=== PATIENT | male | born 1950 | race Caucasian/White ===

== ENCOUNTER 2020-07-25 07:52 | Outpatient (CLI) | payer MEDICARE, SELFPAY ==
[2020-07-25 08:06] LABS: Basophils Absolute Auto 0.05 K/mm3 (0.00-0.10); Basophils Percent Auto 0.8 % (0.0-1.0); Eosinophils Absolute Auto 0.43 K/mm3 (0.02-0.50); Eosinophils Percent Auto 7.3 % (1.0-6.0); Hematocrit 43.5 % (37.0-46.0); Hemoglobin 14.7 g/dL (12.4-15.3); Immature Granulocyte Absolute 0.02 K/mm3 (0.00-0.00); Immature Granulocyte Percent A 0.3 % (0.0-0.0); Lymphocytes Absolute Auto 0.85 K/mm3 (1.10-4.50); Lymphocytes Percent Auto 14.4 % (18.0-42.0); Mean Corpuscular HGB Conc 33.8 g/dL (32.0-36.0); Mean Corpuscular Hemoglobin 29.1 pg (27.0-31.0); Mean Platelet Volume 11.2 fl (8.7-11.0); Monocytes Absolute Auto 0.53 K/mm3 (0.10-0.90); Neutrophils Percent Auto 68.2 % (50.0-70.0); Platelet Count Result 240 K/mm3 (150-420); Red Blood Count 5.06 M/mm3 (4.70-6.10); Red Cell Distribution Width 12.9 % (11.6-14.4); White Blood Count 5.9 K/mm3 (4.8-10.8)
[2020-07-25 08:58] LABS: Alanine Aminotransferase 31 U/L (16-63); Alkaline Phosphatase 66 U/L (46-116); Anion Gap 10 mmol/L (8-16); Aspartate Amino Transferase 22 U/L (15-37); Bilirubin,Total 0.9 mg/dL (0.00-1.00); Blood Urea Nitrogen 16 mg/dL (7-18); Calcium 8.7 mg/dL (8.5-10.1); Carbon Dioxide 26 mmol/L (21-32); Chloride 105 mmol/L (98-108); Cholesterol 207 mg/dL (0-200); Estimated Glomerular Filt Rate > 60; Glucose 117 mg/dL (70-99); HDL Direct 34 mg/dL (40-60); LDL Cholesterol Calculated 152 mg/dL (<130); Osmolality Calculated 294 mOsm/kg (285-295); Potassium 3.6 mmol/L (3.5-5.1); Sodium 141 mmol/L (136-145); Total Protein 6.8 g/dL (6.4-8.2); Triglycerides 103 mg/dL (0-150)
== END 2020-07-25 07:53 | disposition home or self-care (01) ==
LOC: CHSLAB 07:56
PROVIDERS: PCP Nurse Practitioner Family; Visit Provider Nurse Practitioner Family
DX: E78.5 Hyperlipidemia, unspecified (principal); I10 Essential (primary) hypertension
CPT/HCPCS: 36415; 80053; 80061; 85025

== ENCOUNTER 2021-03-27 10:26 | Emergency (ER) | payer MEDICARE, OTHER, SELFPAY ==
[2021-03-27 11:19] VITALS: BP 168/92; PULSE 92; RESP 20; TEMP 36.7; O2SAT 97
--- NOTE | 2021-03-27 11:35 | ED.ANIMALBIT ---
HPI - Animal Bite General Chief Complaint: Animal Bite Stated Complaint: Dog bite Source: patient Mode of arrival: ambulatory History of Present Illness HPI narrative: this is a 70-year-old gentleman that presents with some lacerations on the left index finger on the and on the webbing and on the anterior finger after his dog bit him causing laceration and puncture wounds with avulsion injuries. Currently there is a good strong brisk radial pulse bilaterally with no numbness or tingling, patient not up-to-date with his tetanus. Currently has full range of motion of his hand and fingers. complaint: animal bite Onset (ago): hour(s) Animal: dog Description of animal: household pet Mechanism: bite Location: other ( Bilateral upper extremities hands) Location - Extremities: Right: hand ( lacerations to bilateral hand with some avulsion injuries) Pain description: dull Severity scale (1-10): 2 Context: unprovoked Associated symptoms: none Related Data Home Medications Medication Instructions Recorded Confirmed finasteride 5 mg PO DAILY 03/27/21 03/27/21 valsartan-hydrochlorothiazide 1 tablet PO DAILY 03/27/21 03/27/21 Allergies Allergy/AdvReac Type Severity Reaction Status Date / Time tamsulosin Allergy Intermediate dizziness Verified 03/27/21 11:27 Yrgsffy-Nwi-Meo Reductase AdvReac Intermediate muscle Verified 03/27/21 11:27 Inhibitor stiffness Review of Systems Review of Systems: All systems reviewed & are unremarkable except as noted in HPI and below PMFSH Past Medical History Medical History Enlarged prostate HTN (hypertension) Hyperlipidemia Overweight Family History Family History Other Family history of malignant neoplasm Hypertension Social History Social History Smoking status: Former smoker Tobacco type: cigarettes Alcohol intake: never Substance use: never Substance use type: does not use Gender identity (if verbalized by the patient): Male Exam Const: General: no acute distress HENMT: Head: normal to inspection Eyes: Conjunctivae: conjunctivae normal Pupils: Equal, round and reactive pupils present Neck: Neck: normal visual inspection, no lymphadenopathy and no meningeal signs Chest: Chest palpation & inspection: normal inspection of the chest Resp: Effort & Inspection: normal respiratory effort Auscultation: clear to auscultation bilaterally Cardio: Rate: regular rate Rhythm: regular rhythm GI: GI Palp: Yes Soft to palpation Percussion: Yes normal to percussion Urinary Catheter: Urinary Catheter: patent and draining Back/Spine/Pelvis: Back: no CVA tenderness Skin: General skin exam: normal color Other: Lacerations to the left hand and left index finger and, to and on the right in the ulnar side of the right hand. Extrem: General: normal to inspection and no pedal edema Psych: Mental Status: mental status grossly normal Affect: normal affect Course Course Emergency Course: Patient received 1 g ceftriaxone IM, and updated with his tetanus with Adacel, dura waldrop adhesive was placed on laceration areas and patient tolerated procedure well. Vital Signs Vital signs: Vital Signs Temperature 36.7 C 03/27/21 11:19 Pulse Rate 92 03/27/21 11:19 Respiratory Rate 20 03/27/21 11:19 Blood Pressure 168/92 H 03/27/21 11:19 Pulse Oximetry 97 03/27/21 11:19 Temperature 36.7 C 03/27/21 11:19 Pulse Rate 92 03/27/21 11:19 Respiratory Rate 20 03/27/21 11:19 Blood Pressure 168/92 H 03/27/21 11:19 Pulse Oximetry 97 03/27/21 11:19 Procedures Laceration Laceration 1: Date: 03/27/21 Time: 11:39 Site: upper extremity and hand Side (If applicable): left and right Size (cm): 2 Description: linear Pre-repair: wound expl
[2021-03-27] MEDS: cefTRIAXone 1 GM VIAL IM (11:38)
[2021-03-27] MEDS: LIDOCAINE HCL 1% LOCAL INJ 20 ML VIAL (11:38)
[2021-03-27] MEDS: TETANUS,DIPHTHERIA,AC PERTUSSIS ADULT 0.5 ML (ADACEL) IM (11:39)
[2021-03-27] MEDS: NEOMYCIN/POLYMYXIN/BACITRACIN OINTMENT PACKET 1 PACKET TOPICAL (11:45)
[2021-03-27 11:54] VITALS: BP 155/73; PULSE 93; RESP 20; TEMP 36.7; O2SAT 97
== END 2021-03-27 12:00 | disposition home or self-care (01) ==
PROVIDERS: Emergency Provider Emergency Medicine; PCP Nurse Practitioner Family
DX: S61.211A Laceration without foreign body of left index finger without damage to nail, initial encounter (principal); S61.411A Laceration without foreign body of right hand, initial encounter; S61.412A Laceration without foreign body of left hand, initial encounter; N40.0 Benign prostatic hyperplasia without lower urinary tract symptoms; I10 Essential (primary) hypertension; E78.5 Hyperlipidemia, unspecified; E66.3 Overweight; W54.0XXA Bitten by dog, initial encounter; Y93.9 Activity, unspecified; Z80.9 Family history of malignant neoplasm, unspecified; Z87.891 Personal history of nicotine dependence
CPT/HCPCS: 12001; 90471; 90715; 96372; 99283; J0696

== ENCOUNTER 2022-06-11 12:53 | Emergency (ER) | payer MEDICARE, OTHER, SELFPAY ==
--- NOTE | ~2022-06-11 | XR_ITS ---
EXAMINATION: XR chest 1V portable Exam Date/Time: 06/11/2022 14:07 CDT HISTORY: syncopal episode today with LOC and dizziness Comparison: None available. RESULT: Lines, tubes, and devices: None. Lungs and pleura: Clear. Calcified granulomas. Cardiomediastinal silhouette: Stable cardiomediastinal silhouette. Other: No acute osseous or upper abdominal finding. IMPRESSION: No acute cardiopulmonary process. Reviewed, dictated and finalized at location [facility].
--- NOTE | ~2022-06-11 | CT_ITS ---
EXAMINATION: CT brain wo con DATE: 06/11/2022 14:14 INDICATION: Syncopal episode today, possible loss of consciousness TECHNIQUE: Computed tomography (CT) of the head was performed without intravenous contrast. The mA wa s adjusted according to patient size. Iterative reconstruction technique was employed. Exam dose: 60 5.33 mGy-cm total exam DLP. COMPARISON: None FINDINGS: Bilateral vertebral artery and carotid siphon internal carotid artery calcifications. 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 No intracranial mass lesion or hemorrhage, midline shift or mass effect is detected. No recent cerebr ovascular accident is evident. No subdural or epidural hematoma is detected. There is moderate central and cortical cerebral atrophy and mild cerebellar atrophy. Bilateral ocular lens replacements. Mild partial right mastoidectomy. Mild soft tissue thickening in the posterior right sphenoid sinus. Included paranasal sinuses and mas toid air cells are otherwise unremarkable. Right parietal bone flap in place. No skull fracture or bone destruction. 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 Reviewed, dictated and finalized at location A.
[2022-06-11 13:00] VITALS: BP 152/71; PULSE 79; RESP 22; TEMP 36.6; O2SAT 100
--- NOTE | 2022-06-11 13:11 | ED.SYNCOPE ---
HPI - Syncope General Chief Complaint: Syncope Stated Complaint: ambulance Time Seen by Provider: 06/11/22 13:12 Source: patient Mode of arrival: EMS History of Present Illness HPI narrative: 71-year-old male with a history of hypertension, dyslipidemia, BPH presents to the ER via EMS with -- syncopal spell. When he stood up he felt dizzy, diaphoretic and had shortness of Breath. He had to crawl to get to his phone from where he called 911. He has had dizzy spells off and on but none this bad. -- tested positive for COVID -- tearful -- anxious Denied any chest pain. Denied fever or chills. he has a pulse ox machine which stated that he had heart rates of around 150 intermittently. MD complaint: felt faint Onset (ago): hour(s) ( Happened 1 hour ago) Prodromal symptoms: none Witnessed: No Context: standing up Injuries sustained associated with event: none Current symptoms: back to baseline Treatments prior to arrival: none Related Data Home Medications Medication Instructions Recorded Confirmed finasteride 5 mg tablet 5 mg PO DAILY 03/27/21 06/11/22 Allergies Allergy/AdvReac Type Severity Reaction Status Date / Time tamsulosin Allergy Intermediate dizziness Verified 03/27/21 11:27 Luaxsuf-EKQ-PbU Reductase AdvReac Intermediate muscle Verified 03/27/21 11:27 Inhibitor stiffness [Wyqdhyl-Axz-Oee Reductase Inhibitor] Review of Systems Review of Systems: All systems reviewed & are unremarkable except as noted in HPI and below Constitutional: Constitutional: Reports as per HPI and Reports no additional constitutional complaints Eyes: Eyes: Reports as per HPI and Reports no additional eye complaints ENT: Reports system reviewed and no additional complaints, except as documented and Reports as per HPI Cardiovascular: Cardiovascular: Reports as per HPI and Reports no additional cardiovascular complaints Respiratory: Respiratory: Reports as per HPI and Reports no additional respiratory complaints Comments: Shortness of breath during his dizzy spells Gastrointestinal: Gastrointestinal: Reports as per HPI and Reports no additional gastrointestinal complaints Genitourinary: Genitourinary: Reports no additional male genitourinary complaints and Reports as per HPI Musculoskeletal: Musculoskeletal: Reports no additional musculoskeletal complaints and Reports as per HPI Integumentary/Breasts: Skin/Breast: Reports system reviewed and no additional complaints, except as docu and Reports as per HPI Neurologic: Reports system reviewed and no additional complaints, except as documented, Reports as per HPI, Reports dizziness and Reports syncope Psychiatric: Psychiatric: Reports no additional psychiatric complaints and Reports as per HPI Endocrine: Endocrine: Reports no additional endocrine complaints and Reports as per HPI Hematologic/Lymphatic: Hematologic/Lymphatic: Reports no additional hematologic/lymphatic complaints and Reports as per HPI Allergic/Immunologic: Allergic/Immunologic: Reports no additional allergic/immunologic complaints and Reports as per HPI [facility] Past Medical History Medical History Enlarged prostate HTN (hypertension) Hyperlipidemia Overweight Family History Family History Other Family history of malignant neoplasm Hypertension Social History Social History Smoking status: Former smoker Tobacco type: cigarettes Alcohol intake: never Substance use: never Substance use type: does not use Gender identity (if verbalized by the patient): Male Exam Const: General: healthy appearing and no acute distress Orientation/consciousness: patient oriented x3 Limitations: no limitations Other: orthostatic- systolic blood pressure dropped 21 points from lying to sitting position. Heart rate i
--- NOTE | 2022-06-11 13:41 | ECG_ITS ---
Measurements Intervals [place] Rate: 76 P: 40 NE: 192 QRS: 71 QRSD: 94 T: 43 QT: 397 QTc: 448 Interpretive Statements SINUS RHYTHM BASELINE ARTIFACT- I, II, III, AVR, AVL, V1-V2 NORMAL ECG Electronically Signed On 06-11-2022 15:32:55 CDT by Farhat Bryant D.O.
[2022-06-11 14:04] LABS: Basophils Absolute Auto 0.04 K/mm3 (0.00-0.10); Basophils Percent Auto 0.7 % (0.0-1.0); Eosinophils Absolute Auto 0.01 K/mm3 (0.02-0.50); Eosinophils Percent Auto 0.2 % (1.0-6.0); Hematocrit 41.1 % (37.0-46.0); Hemoglobin 14.5 g/dL (12.4-15.3); Immature Granulocyte Absolute 0.02 K/mm3 (0.00-0.00); Immature Granulocyte Percent A 0.3 % (0.0-0.0); Lymphocytes Absolute Auto 0.32 K/mm3 (1.10-4.50); Lymphocytes Percent Auto 5.3 % (18.0-42.0); Mean Corpuscular HGB Conc 35.3 g/dL (32.0-36.0); Mean Corpuscular Hemoglobin 29.6 pg (27.0-31.0); Mean Corpuscular Volume 83.9 fL (78.0-102.0); Mean Platelet Volume 11.6 fl (8.7-11.0); Monocytes Absolute Auto 0.57 K/mm3 (0.10-0.90); Monocytes Percent Auto 9.5 % (2.0-11.0); Platelet Count Result 185 K/mm3 (150-420); Red Cell Distribution Width 12.9 % (11.6-14.4)
--- NOTE | 2022-06-11 14:13 | PC.NURSE ---
1402 awaiting for patient to return from radiology to start fluids. Pt stated felt better prior to going to radiology.
[2022-06-11 14:17] LABS: Partial Thromboplastin Time 25.9 SEC (23.90-30.70); Prothrombin Time 10.9 Seconds (9.50-12.10)
[2022-06-11] MEDS: LACTATED RINGERS 1,000 ML 999 ML IV CONT (14:24)
[2022-06-11 14:25] LABS: Lactic Acid Reflex 1.9 mmol/L (0.4-2.0)
[2022-06-11 14:30] LABS: Alanine Aminotransferase 24 U/L (16-63); Albumin Level 4.1 g/dL (3.4-5.0); Alkaline Phosphatase 78 U/L (46-116); Anion Gap 10 mmol/L (8-16); Aspartate Amino Transferase 12 U/L (15-37); Bilirubin,Total 0.8 mg/dL (0.00-1.00); Blood Urea Nitrogen 17 mg/dL (7-18); Calcium 8.9 mg/dL (8.5-10.1); Carbon Dioxide 25 mmol/L (21-32); Chloride 101 mmol/L (98-108); Estimated CRCL calculation 56 ml/min; Estimated Glomerular Filt Rate > 60; Glucose 121 mg/dL (70-99); Lipase 75 U/L (73-393); NT Pro B Type Natriuretic Pept 1812 pg/mL (0-125); Osmolality Calculated 284 mOsm/kg (285-295); Potassium 3.4 mmol/L (3.5-5.1); Sodium 136 mmol/L (136-145); Total Protein 6.9 g/dL (6.4-8.2)
[2022-06-11 14:39] LABS: SARS-CoV-2 RNA PCR Positive (Negative)
[2022-06-11 15:00] VITALS: BP 147/59; PULSE 78; RESP 20; O2SAT 100
--- NOTE | 2022-06-11 15:10 | PC.NURSE ---
Report received, pt care resumed...Pt resting in bed A&O x4, POC for d/c given to pt per ERP.
[2022-06-11 15:30] VITALS: BP 137/68; PULSE 77; RESP 20; TEMP 36.6; O2SAT 100
--- NOTE | 2022-06-11 15:42 | PC.NURSE ---
VSS, POC and d/c home instructions given in length to pt and pts. sons in parking lot. Pt instructed on taking Paxlovid that is awaiting at his pharmacy.
== END 2022-06-11 15:57 | disposition home or self-care (01) ==
PROVIDERS: Emergency Provider Internal Medicine Critical Care Medicine; PCP Nurse Practitioner Family
DX: U07.1 COVID-19 (principal); I10 Essential (primary) hypertension; E78.5 Hyperlipidemia, unspecified; N40.0 Benign prostatic hyperplasia without lower urinary tract symptoms; Z87.891 Personal history of nicotine dependence
CPT/HCPCS: 36415; 70450; 71045; 80053; 83605; 83690; 83880; 84484; 85025; 85610; 85730; 93005; 96360; 99284; C9803; J7120; U0003; U0005

== ENCOUNTER 2022-08-17 12:33 | Outpatient (CLI) | payer MEDICARE, SELFPAY ==
--- NOTE | 2022-08-17 12:47 | ECG_ITS ---
Measurements Intervals [place] Rate: 110 P: [place]: 0 QRS: 81 QRSD: 88 T: 49 QT: 345 QTc: 468 Interpretive Statements ATRIAL FIBRILLATION WITH RAPID VENTRICULAR RESPONSE BORDERLINE ST-T WAVE ABNORMALITY- INFERIOR LEADS ABNORMAL ECG COMPARED TO ECG 06/11/2022 13:58:15 ATR[address] F[address]RILLATION NOW PRESENT ST (T WAVE) DEVIATION NOW PRESENT Electronically Signed On 08-17-2022 13:54:53 CDT by Farhat Bryant D.O.
== END 2022-08-17 12:34 | disposition home or self-care (01) ==
PROVIDERS: PCP Nurse Practitioner Family; Visit Provider Nurse Practitioner Family
DX: I49.9 Cardiac arrhythmia, unspecified (principal)
CPT/HCPCS: 93005

== ENCOUNTER 2022-08-17 14:02 | Inpatient (IN) | payer MEDICARE, OTHER, SELFPAY ==
[2022-08-17] VITALS (29 sets, daily range): BP systolic 112–160; BP diastolic 61–107; PULSE 62–131; RESP 11–21; TEMP 36.4–36.5; O2SAT 94–99; BMI 24.1
--- NOTE | 2022-08-17 | ECHO_ITS ---
Patient Info Name: Vidal Ace Age: 71 years : 1950 Gender: Male Ht: 71 in Wt: 185 lbs BSA: 2.06 m2 HR: 88 bpm BP: 158 / 76 mmHg Heart Rhythm: Atrial Fibrillation Technical Quality: Fair Exam Date: 08/17/2022 5:24 PM Exam Location: [facility] Card Pulmonary Patient Status: Inpatient Admit Date: 08/17/2022 Staff Ordering Physician: Xochitl Thompson MD Branch Billing Payroll Clerk: Maria Luisa Carbajal RDCS Attending Provider: Alban Phillips MD Referring Physician: Jay VALERO; Exam Type: CA echo dop color flow w con Study Info Indications - new paf Complete two-dimensional, color flow and Doppler transthoracic echocardiogram is performed with contrast to opacify the left ventricle and to improve the deliniation of the left ventricle endocardial borders. Contrast/Agitated Saline Contrast/Ag. Saline: Definity Amount: 3.00 ml Administered By: Maria Luisa Carbajal RDCS Existing IV Access: Yes IV Access Condition: patent with no signs of infiltration Summary 1. Normal left ventricular size with moderate concentric hypertrophy. Good systolic function of all segments. Ejection fraction is 58%. Normal diastolic function. 2. Left atrial chamber dimension is moderately enlarged. 3. There is mild mitral valve regurgitation. 4. No pulmonary hypertension, estimated pulmonary arterial systolic pressure is 29 mmHg. 5. Atrial fibrillation. Left Ventricle Left ventricular chamber dimension is normal. Left ventricular systolic function is normal, estimated at 60-65%. There is moderately increased left ventricular wall thickness. Left ventricular septal wall motion is normal. The left ventricular diastolic function is normal. Right Ventricle Right ventricular chamber dimension is normal. Right ventricular systolic function is normal. Left Atria Left atrial chamber dimension is moderately enlarged. Right Atria Right atrial chamber dimension is normal. Aortic Valve The aortic valve is trileaflet. There is no aortic valve sclerosis. There is no aortic valve stenosis. There is trace aortic valve regurgitation. Pulmonic Valve The pulmonic valve is normal. There is no pulmonic valve stenosis. There is no pulmonic regurgitation. Mitral Valve The mitral valve has normal leaflets. There is no mitral valve stenosis. There is mild mitral valve regurgitation. Tricuspid Valve The tricuspid valve leaflets are normal. There is no significant tricuspid valve stenosis. There is trace tricuspid valve regurgitation. No pulmonary hypertension, estimated pulmonary arterial systolic pressure is 29 mmHg. Pericardium/Pleural The pericardium appears normal. There is no pericardial effusion. Inferior Vena Cava Normal inferior vena cava with >50% collapse upon inspiration consistent with Empty right atrial pressure, 10 mmHg. Aorta The aortic root size at the sinus of Valsalva is normal. The prox ascending aorta size is normal. Left Ventricular Outflow Tract Name Value Normal LVOT 2D LVOT Diameter 2.14 cm LVOT Doppler LVOT Peak Gradient
--- NOTE | ~2022-08-17 | XR_ITS ---
EXAMINATION: XR chest 1V portable Exam Date/Time: 08/17/2022 15:30 CDT HISTORY: chest pain, NEW ONSET AFIB TODAY, HX OF HTN Comparison: 06/11/2022. RESULT: Lines, tubes, and devices: Cholecystectomy clips. Lungs and pleura: Right basilar scar. Cardiomediastinal silhouette: Stable. Other: No acute osseous or upper abdominal finding. IMPRESSION: No acute cardiopulmonary process. Reviewed, dictated and finalized at location K.
--- NOTE | 2022-08-17 14:15 | ECG_ITS ---
Measurements Intervals [place] Rate: 80 P: 77 [place]: 175 QRS: 75 QRSD: 88 T: 43 QT: 342 QTc: 396 Interpretive Statements SINUS RHYTHM BORDERLINE ST ABNORMALITY- ANTEROLATERAL LEADS BORDERLINE ECG COMPARED TO ECG 08/17/2022 13:00:59 SINUS RHYTHM NOW PRESENT Electronically Signed On 08-17-2022 14:27:07 CDT by Farhat Bryant D.O.
[2022-08-17 14:33] LABS: Basophils Percent Auto 0.6 % (0.2-1.2); Eosinophils Absolute Auto 0.1 K/mm3 (0-0.3); Eosinophils Percent Auto 2.2 % (0-4.4); Hematocrit 43.9 % (42.0-52.0); Hemoglobin 14.6 g/dL (14.0-18.0); Immature Granulocyte Absolute 0.01 K/mm3 (0.00-0.031); Immature Granulocyte Percent A 0.2 % (0-0.5); Lymphocytes Absolute Auto 0.89 K/mm3 (0.9-3.2); Lymphocytes Percent Auto 13.9 % (18.3-44.2); Mean Corpuscular HGB Conc 33.3 g/dl (32-36); Mean Corpuscular Hemoglobin 28.9 pg (26-34); Mean Corpuscular Volume 86.8 fl (80-100); Mean Platelet Volume 10.8 fl (7.4-10.4); Monocytes Absolute Auto 0.5 K/mm3 (0.1-0.6); Monocytes Percent Auto 7.4 % (2.6-8.5); Neutrophils Absolute Auto 4.8 K/mm3 (1.3-6.7); Neutrophils Percent Auto 75.7 % (45.5-73.1); Platelet Count Result 243 k/mm3 (150-375); Red Blood Count 5.06 M/mm3 (4.6-6.20); Red Cell Distribution Width 13.9 % (11.5-14.5); White Blood Count 6.4 K/mm3 (4.5-10.0)
[2022-08-17 14:44] LABS: INR 1.1; Prothrombin Time 13.3 Seconds (11.1-14.7)
[2022-08-17 14:45] LABS: Alanine Aminotransferase 26 U/L (6-50); Albumin Level 4.6 g/dL (3.5-5.1); Alkaline Phosphatase 60 U/L (38-126); Anion Gap 12 mmol/L (8-16); Aspartate Amino Transferase 24 U/L (17-59); Bilirubin,Total 0.7 mg/dL (0.2-1.3); Blood Urea Nitrogen 26 mg/dL (9-20); Carbon Dioxide 24 mmol/L (22-30); Chloride 104 mmol/L (98-107); Estimated CRCL calculation 59 ml/min; Estimated Glomerular Filt Rate > 60; Glucose 105 mg/dL (65-110); Lipase 91 U/L (23-300); Partial Thromboplastin Time 29.9 SECONDS (22.3-36.8); Potassium 3.7 mmol/L (3.4-5.0); Sodium 140 mmol/L (137-145)
[2022-08-17 14:57] LABS: Troponin I < 0.012 ng/mL (0.000-0.034)
--- NOTE | 2022-08-17 15:10 | ECG_ITS ---
Measurements Intervals [place] Rate: 110 P: SD: 0 QRS: 72 QRSD: 84 T: 16 QT: 322 QTc: 436 Interpretive Statements ATRIAL FIBRILLATION WITH RAPID VENTRICULAR RESPONSE BASELINE ARTIFACT- I, II, III, AVL ABNORMAL ECG COMPARED TO ECG 08/17/2022 14:20:53 ATRIAL FIBRILLATION NOW PRESENT Electronically Signed On 08-17-2022 15:31:14 CDT by Farhat Bryant D.O.
--- NOTE | 2022-08-17 15:18 | ED.ARRPALP ---
HPI - Arrhythmia/Palpitations General Chief Complaint: Arrhythmia/Palpitations Stated Complaint: afib Time Seen by Provider: 08/17/22 15:10 Source: RN notes reviewed History of Present Illness HPI narrative: Patient presents emergency department from PCPs office for atrial fibrillation. Patient states he is going to see his doctor today for routine medication refill states in the office the doctor checked his pulse was irregular and got an EKG showing atrial fibrillation he denies any history of atrial fibrillation states he has been noticing recently these been having some shortness of breath with exertion he denies any chest pain he denies any fevers or chills abdominal pain nausea vomiting states he is on an aspirin daily Related Data Home Medications Medication Instructions Recorded Confirmed finasteride 5 mg tablet 5 mg PO DAILY 03/27/21 08/17/22 Allergies Allergy/AdvReac Type Severity Reaction Status Date / Time tamsulosin Allergy Intermediate dizziness Verified 08/17/22 15:14 Jnnfvwe-LGH-TfB Reductase AdvReac Intermediate muscle Verified 08/17/22 15:14 Inhibitor stiffness [Vnbjtui-Kxf-Uvv Reductase Inhibitor] Review of Systems Review of Systems: Gen.: Denies fevers or chills ENT: Denies congestion Respiratory: Denies shortness of breath or cough CV: see HPI GI: Denies abdominal pain nausea, emesis or diarrhea Musculoskeletal: Denies back pain or muscle pain Neuro: Denies numbness, tingling, weakness or focal weakness Skin: Denies rash Except as documented, all other systems reviewed and negative [facility] Past Medical History Medical History Enlarged prostate HTN (hypertension) Hyperlipidemia Overweight Family History Family History Other Family history of malignant neoplasm Hypertension Social History Social History Smoking status: Former smoker Tobacco type: cigarettes Alcohol intake: never Substance use: never Substance use type: does not use Gender identity (if verbalized by the patient): Male Exam Narrative: APPEARANCE: No acute distress, nontoxic, resting in bed EYES: EOMI HEENT: Normocephalic, atraumatic, OMM RESPIRATORY: No respiratory distress Clear to auscultation bilaterally with no rhonchi wheezing or rales. CARDIOVASCULAR: Irregular irregular without murmurs rubs or gallops. ABDOMINAL: Soft, nontender, nondistended, no rebound or guarding MUSCULOSKELETAl: Moves all extremities. No clubbing, cyanosis or edema. NEURO: Awake and alert. Following commands, speech normal, no focal deficits SKIN:: Warm, dry. No rashes lesions or abrasions PSYCHIATRIC: Normal affect/mood, Course Course Emergency Course: Discussed with Dr. Jauregui presentation work-up agrees with consult request patient be given Cardizem drip as well as metoprolol 25 mg x 1 now and started on Lovenox Discussed with PROGRAM AIDE Adelina for Dr. Phillips agrees with admission Discussed with patient and family results of workup and diagnosis. Discussed need for admission. Patient and family understand and agree to current treatment plan Vital Signs Vital signs: Vital Signs Temperature 97.6 F 08/17/22 14:07 Pulse Rate 113 H 08/17/22 14:07 Respiratory Rate 18 08/17/22 14:07 Blood Pressure 155/107 H 08/17/22 14:07 Pulse Oximetry 98 08/17/22 14:07 Oxygen Delivery Room Air 08/17/22 14:07 Temperature 97.6 F 08/17/22 14:07 Pulse Rate 101 H 08/17/22 15:50 Respiratory Rate 15 08/17/22 15:50 Blood Pressure 159/93 H 08/17/22 15:50 Pulse Oximetry 98 08/17/22 15:50 Oxygen Delivery Room Air 08/17/22 14:07 MDM - Arrhythmia/Palpitations Lab Data Result diagrams: 08/17/22 14:28 08/17/22 14:28 Labs: Lab Results 08/17/22 08/17/22 08/17/22 Range/Units 14:28 14:28 14:28 W
[2022-08-17] MEDS: dilTIAZem 100 MG/100 ML 100 MG/100 ML BAG IV CONT (15:43)
[2022-08-17] MEDS: METOPROLOL TARTRATE 25 MG TABLET PO (15:47)
[2022-08-17] MEDS: ENOXAPARIN 80 MG/0.8 ML SYRINGE 84 MG SUB-Q (15:48)
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
[2022-08-17] MEDS: PERFLUTREN LIPID MICROSPHERES 1.5 ML VIAL DILUTED TO 10 ML TOTAL VOLUME IV PUSH (17:15)
--- NOTE | 2022-08-17 18:18 | IVDEFINITY ---
Prior to administration of IV Definity the patient was educated on the risks and benefits of the imaging enhancing agent including potential adverse side effects. The patient verbalized understanding. Allergies were verified. No exclusion criteria were identified and at least one of the following inclusion criteria were met: 1) physician request, 2) patient technically difficult to image (per the [place] [employer] guidelines of two or more segments not discernable within the apical view), or 3) questionable left ventricular function. ?
[2022-08-17 18:42] LABS: Magnesium 2.2 mg/dL (1.6-2.3)
[2022-08-17 18:55] LABS: Troponin I < 0.012 ng/mL (0.000-0.034)
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
--- NOTE | 2022-08-17 21:11 | ADMGEN ---
This patient, Vidal Ace, was admitted to IMU Room 231-01. Patient/family oriented to hospital policies and general routines including ID bracelet, bed and alarms, visiting hours, pain management, procedures, bathroom and other care routines, personal items, smoking policy, room service/diet, and visiting hours. Information on how to activate the Rapid Response Team has been discussed. Patient/Family are encouraged to report perceived risks to care and to ask questions if they do not understand what they are told or what they should do.
--- NOTE | 2022-08-17 21:50 | ECG_ITS ---
Measurements Intervals [place] Rate: 63 P: 46 WI: 211 QRS: 73 QRSD: 94 T: 37 QT: 418 QTc: 430 Interpretive Statements SINUS RHYTHM WITH FIRST DEGREE AV BLOCK COMPARED TO ECG 08/17/2022 15:19:52 BORDERLINE ECG SINUS RHYTHM NOW PRESENT FIRST DEGREE AV BLOCK NOW PRESENT Electronically Signed On 08-18-2022 7:56:03 CDT by Farhat Bryant D.O.
[2022-08-17 22:04] LABS: Troponin I < 0.012 ng/mL (0.000-0.034)
--- NOTE | 2022-08-17 23:13 | PCRCNOTE ---
Unable to perform Apnea link. Pt is currently on a cardizem drip, will be unable to sleep all noc.
[2022-08-18] VITALS (13 sets, daily range): BP systolic 123–146; BP diastolic 55–83; PULSE 64–104; RESP 16–20; TEMP 36.3–36.9; O2SAT 97–100
[2022-08-18 04:54] LABS: Basophils Percent Auto 0.7 % (0.2-1.2); Eosinophils Absolute Auto 0.2 K/mm3 (0-0.3); Eosinophils Percent Auto 3.3 % (0-4.4); Hematocrit 42.2 % (42.0-52.0); Hemoglobin 14.1 g/dL (14.0-18.0); Immature Granulocyte Absolute 0.01 K/mm3 (0.00-0.031); Immature Granulocyte Percent A 0.2 % (0-0.5); Lymphocytes Absolute Auto 1.06 K/mm3 (0.9-3.2); Lymphocytes Percent Auto 18.3 % (18.3-44.2); Mean Corpuscular HGB Conc 33.4 g/dl (32-36); Mean Corpuscular Hemoglobin 28.9 pg (26-34); Mean Corpuscular Volume 86.5 fl (80-100); Mean Platelet Volume 10.7 fl (7.4-10.4); Monocytes Absolute Auto 0.5 K/mm3 (0.1-0.6); Neutrophils Percent Auto 68.5 % (45.5-73.1); Platelet Count Result 202 k/mm3 (150-375); Red Blood Count 4.88 M/mm3 (4.6-6.20); Red Cell Distribution Width 13.6 % (11.5-14.5); White Blood Count 5.8 K/mm3 (4.5-10.0)
[2022-08-18 05:05] LABS: Alanine Aminotransferase 23 U/L (6-50); Alkaline Phosphatase 56 U/L (38-126); Anion Gap 9 mmol/L (8-16); Aspartate Amino Transferase 21 U/L (17-59); Bilirubin,Total 1.3 mg/dL (0.2-1.3); Blood Urea Nitrogen 21 mg/dL (9-20); Calcium 8.9 mg/dL (8.4-10.2); Carbon Dioxide 27 mmol/L (22-30); Chloride 105 mmol/L (98-107); Cholesterol 230 mg/dL (0-200); Estimated CRCL calculation 71 ml/min; Estimated Glomerular Filt Rate > 60; Glucose 93 mg/dL (65-110); HDL Direct 33 mg/dL; Magnesium 2.2 mg/dL (1.6-2.3); Potassium 3.2 mmol/L (3.4-5.0); Sodium 141 mmol/L (137-145); Triglycerides 129 mg/dL (<150)
[2022-08-18 05:06] LABS: Lactic Acid Reflex 0.9 mmol/L (0.7-2.0)
[2022-08-18 05:16] LABS: LDL Cholesterol Direct 166 mg/dL
[2022-08-18] MEDS: dilTIAZem HCL 60 MG TABLET PO ×2 (10:57→17:43)
[2022-08-18] MEDS: APIXABAN 5 MG TABLET PO ×2 (10:57→20:10)
[2022-08-18] MEDS: ASPIRIN 81 MG ENTERIC TABLET PO (10:58)
[2022-08-18] MEDS: FINASTERIDE 5 MG TABLET PO (10:58)
[2022-08-18] MEDS: POTASSIUM CHLORIDE 20 MEQ TABLET 40 MEQ PO (11:01)
--- NOTE | 2022-08-18 12:27 | PM.PNCARD ---
Progress Note: A&P Assessment and Plan (1) Paroxysmal atrial fibrillation: Code(s): I48.0 - Paroxysmal atrial fibrillation Status: Acute Assessment and Plan: Patient presents with paroxysmal AFib RVR. His symptoms have been going on for perhaps a couple of years intermittently. He is mildly symptomatic at times. No clear etiology other than age and hypertension Echo showed normal LV systolic function, EF 58%. Mild MR. TSH normal ApneaLink was not performed last night, try again tonight Shift to long acting diltiazem starting tomorrow a.m. Continue systemic a/c with Eliquis, [id number] score 2 Likely discharge tomorrow OK to downgrade to med/tele (2) HTN (hypertension): Code(s): I10 - Essential (primary) hypertension Status: Acute Assessment and Plan: History of hypertension, valsartan HCT causes dizziness and urinary frequency. Hopefully can be controlled with p.o. diltiazem. Can make adjustments to his regimen as outpatient if he remains hypertensive. (3) Hyperlipidemia: Code(s): E78.5 - Hyperlipidemia, unspecified Status: Acute Assessment and Plan: Total cholesterol is 207, HDL 34, LDL 152. Ten year ASCVD risk is 20% May benefit from statin therapy. (4) History of syncope: Code(s): Z87.898 - Personal history of other specified conditions Status: Acute Assessment and Plan: History of syncope associated with COVID, no recurrence. Likely related to viral infection. Subjective Date/time seen: 08/18/22 12:27 Cardiology follow up for atrial fibrillation Feeling well today. Does not have any complaints. Received first dose of p.o. diltiazem and rate generally well controlled but has had some intermittent tachycardia. Review of Systems Constitutional: Constitutional: Denies fever(s) Cardiovascular: Cardiovascular: Denies chest pain, Denies pedal edema, Denies leg edema, Denies lightheadedness, Reports palpitations, Denies dyspnea and Reports dyspnea on exertion (Occasionally) Respiratory: Respiratory: Denies chest congestion, Denies dyspnea and Reports dyspnea on exertion (Occasionally) Gastrointestinal: Gastrointestinal: Denies abdominal pain and Denies hematochezia Genitourinary: Genitourinary: Denies hematuria Musculoskeletal: Musculoskeletal: Reports no additional musculoskeletal complaints Integumentary/Breasts: Skin/Breast: Reports system reviewed and no additional complaints, except as docu Neurologic: Reports system reviewed and no additional complaints, except as documented, Denies behavioral changes and Denies confusion Psychiatric: Psychiatric: Denies behavioral changes and Denies confusion Endocrine: Endocrine: Reports palpitations Exam Const: General: cooperative, healthy appearing and comfortable; No confusion Orientation/consciousness: oriented to person, patient oriented x3 and No confusion HENMT: Mouth: Yes moist mucous membranes Neck: Neck: supple and no JVD Thyroid: thyroid normal Carotids: no bruits Resp: Effort & Inspection: normal respiratory effort Auscultation: clear to auscultation bilaterally Cardio: Rate: regular rate and tachycardic Rhythm: regular rhythm and abnormal rhythm irregularly irregular Heart sounds: no murmurs Other: Pedal pulses are diminished GI: Inspection: normal to inspection Skin: General skin exam: normal color and no rashes or lesions noted Neuro: General: oriented to person, patient oriented x3 and No confusion Extrem: Right lower extremity: no edema Left lower extremity: no edema Psych: Appearance: grossly normal Mental Status: mental status grossly normal Objective Data Vital Signs Vital Signs: Vital Signs - 24 hr 08/17/22 14:07 08/17/22 15:12 08/17/22 15:24 Temperature 36.4 C Pulse Rate 113 H 131 H 107 H Respiratory Rate 18 19 Blood Pressure 155/107 H 148/89 H Pulse Oximetry 98 99 Oxygen Delivery Room Air 08/17/22 15:43
--- NOTE | 2022-08-18 13:45 | PM.IMPN ---
Progress Note: A&P Assessment and Plan (1) Atrial fibrillation with RVR: Code(s): I48.91 - Unspecified atrial fibrillation Status: Acute Assessment and Plan: Off cardizem ggt this morning. Started on cardizem po overnight. HR up to 150s on tele this morning. Echo with EF 58%, left atrial enlargement and in atrial fibrillation. -Continue apixaban -Continue cardizem po -Appreciate recommendations from Cardiology (2) HTN (hypertension): Code(s): I10 - Essential (primary) hypertension Status: Acute Assessment and Plan: Metopolol discontinued due to starting diltiazem. Will monitor. (3) Hyperlipidemia: Code(s): E78.5 - Hyperlipidemia, unspecified Status: Acute Assessment and Plan: Has allergy to statin. (4) BPH (benign prostatic hyperplasia): Code(s): N40.0 - Benign prostatic hyperplasia without lower urinary tract symptoms Status: Acute Assessment and Plan: -Continue with finasteride Subjective Date/time seen: 08/18/22 12:45 Patient says he will sometimes experience a fluttering sensation in his chest. Reports feeling like his heartbeat is irregular sometimes. Says he has had this for some time. He has also noticed becoming short of breath with exertion. Denies chest pain. Review of Systems Cardiovascular: Cardiovascular: Denies chest pain, Denies lightheadedness and Reports palpitations Exam Narrative: GENERAL: NAD, cooperative HEENT: Normocephalic, atraumatic, anicteric NECK:Supple CV:regular rate RESP: CTAB, Normal work of breathing. EXTREMITIES: Warm and well perfused, no clubbing, cyanosis, or edema. SKIN: warm, dry and intact. NEURO: CN 2-12 grossly intact. Objective Data Vital Signs Vital Signs: Vital Signs - 24 hr 08/18/22 00:00 08/18/22 00:00 08/18/22 00:00 Temperature 98.2 F Pulse Rate 66 71 71 Respiratory Rate 16 16 Blood Pressure 129/77 Pulse Oximetry 100 100 Oxygen Delivery Room Air 08/18/22 02:00 08/18/22 04:00 08/18/22 04:00 Temperature 97.6 F Pulse Rate 77 84 87 Respiratory Rate 16 Blood Pressure 142/83 H Pulse Oximetry 99 Oxygen Delivery 08/18/22 04:00 08/18/22 06:00 08/18/22 08:01 Temperature 97.4 F L Pulse Rate 87 84 87 Respiratory Rate 16 20 Blood Pressure 134/72 Pulse Oximetry 99 98 Oxygen Delivery Room Air 08/18/22 11:59 08/18/22 08:00 08/18/22 10:00 Temperature 98.4 F Pulse Rate 95 68 104 H Respiratory Rate 18 Blood Pressure 146/63 H Pulse Oximetry 97 Oxygen Delivery 08/18/22 12:00 08/18/22 08:00 08/18/22 12:00 Temperature Pulse Rate 85 Respiratory Rate Blood Pressure Pulse Oximetry 97 97 Oxygen Delivery Room Air Room Air 08/18/22 16:23 08/18/22 16:00 08/18/22 20:00 Temperature 98.1 F 98.1 F Pulse Rate 67 65 64 Respiratory Rate 20 18 Blood Pressure 130/63 123/55 L Pulse Oximetry 99 98 Oxygen Delivery 08/18/22 20:00 08/18/22 20:00 Temperature Pulse Rate 67 67 Respiratory Rate 18 Blood Pressure Pulse Oximetry 98 Oxygen Delivery Room Air Intake/Output Intake/Output: Intake & Output 08/15/22 08/16/22 08/17/22 08/18/22 23:59 23:59 23:59 23:59 Intake Total 1610 Balance 1610 Meds/Results Medications: Active Medications Generic Name Dose Route Start Last Admin Trade Name Lewis PRN Reason Stop Dose Admin Apixaban 5 mg 08/18/22 09:00 08/18/22 20:10 Apixaban 5 Mg Tablet PO 5 mg Q12HR TONI Administration Aspirin 81 mg 08/18/22 09:00 08/18/22 10:58 Aspirin 81 Mg Enteric Tablet PO 81 mg DAILY TONI Administration Diltiazem HCl 60 mg 08/18/22 09:00 08/18/22 17:43 Diltiazem Hcl 60 Mg Tablet PO 08/19/22 08:55 60 mg Q8H TONI Administration Diltiazem HCl 180 mg 08/19/22 09:00 Diltiazem Hcl Cd 180 Mg Cap.Er.24h PO QAM TONI Finasteride 5 mg 08/18/22 09:00 08/18/22 10:58 Finasteride 5 Mg Tablet PO 5
[2022-08-19] VITALS: PULSE 65; PULSE 67
[2022-08-19] MEDS: dilTIAZem HCL 60 MG TABLET PO (00:06)
[2022-08-19 04:00] VITALS: PULSE 63
[2022-08-19 08:00] VITALS: BP 125/58; PULSE 66; PULSE 67; RESP 16; TEMP 36.9; O2SAT 100
--- NOTE | 2022-08-19 08:38 | PM.PNCARD ---
Progress Note: A&P Assessment and Plan (1) Paroxysmal atrial fibrillation: Code(s): I48.0 - Paroxysmal atrial fibrillation Status: Acute Assessment and Plan: Patient presents with paroxysmal AFib RVR. His symptoms have been going on for perhaps a couple of years intermittently. He is mildly symptomatic at times. No clear etiology other than age and hypertension Echo showed normal LV systolic function, EF 58%. Mild MR. TSH normal ApneaLink last night showed AHI of 9. Recommend outpatient sleep study Continue diltiazem 180mg p.o. daily Continue systemic a/c with Eliquis, [id number] score 2 OK for discharge today from a cardiac standpoint (2) HTN (hypertension): Code(s): I10 - Essential (primary) hypertension Status: Acute Assessment and Plan: History of hypertension, valsartan HCT causes dizziness and urinary frequency. Hopefully can be controlled with p.o. diltiazem. Can make adjustments to his regimen as outpatient if he remains hypertensive. (3) Hyperlipidemia: Code(s): E78.5 - Hyperlipidemia, unspecified Status: Acute Assessment and Plan: Total cholesterol is 207, HDL 34, LDL 152. Ten year ASCVD risk is 20% May benefit from statin therapy. (4) History of syncope: Code(s): Z87.898 - Personal history of other specified conditions Status: Acute Assessment and Plan: History of syncope associated with COVID, no recurrence. Likely related to viral infection. Subjective Date/time seen: 08/19/22 08:38 Cardiology follow up for atrial fibrillation Feeling well this morning. Converted to sinus rhythm yesterday. Has frequent PAC's and some PVC's on telemetry. He does not have any complaints this morning. Review of Systems Constitutional: Constitutional: Denies fever(s) Cardiovascular: Cardiovascular: Denies chest pain, Denies pedal edema, Denies leg edema, Denies lightheadedness, Reports palpitations, Denies dyspnea and Reports dyspnea on exertion (Occasionally) Respiratory: Respiratory: Denies chest congestion, Denies dyspnea and Reports dyspnea on exertion (Occasionally) Gastrointestinal: Gastrointestinal: Denies abdominal pain and Denies hematochezia Genitourinary: Genitourinary: Denies hematuria Musculoskeletal: Musculoskeletal: Reports no additional musculoskeletal complaints Integumentary/Breasts: Skin/Breast: Reports system reviewed and no additional complaints, except as docu Neurologic: Reports system reviewed and no additional complaints, except as documented, Denies behavioral changes and Denies confusion Psychiatric: Psychiatric: Denies behavioral changes and Denies confusion Endocrine: Endocrine: Reports palpitations Exam Const: General: cooperative, healthy appearing and comfortable; No confusion Orientation/consciousness: oriented to person, patient oriented x3 and No confusion HENMT: Mouth: Yes moist mucous membranes Neck: Neck: supple and no JVD Thyroid: thyroid normal Carotids: no bruits Resp: Effort & Inspection: normal respiratory effort Auscultation: clear to auscultation bilaterally Cardio: Rate: regular rate Rhythm: regular rhythm Heart sounds: no murmurs Other: Pedal pulses are diminished GI: Inspection: normal to inspection Skin: General skin exam: normal color and no rashes or lesions noted Neuro: General: oriented to person, patient oriented x3 and No confusion Extrem: Right lower extremity: no edema Left lower extremity: no edema Psych: Appearance: grossly normal Mental Status: mental status grossly normal Objective Data Vital Signs Vital Signs: Vital Signs - 24 hr 08/18/22 11:59 08/18/22 10:00 08/18/22 12:00 Temperature 36.9 C Pulse Rate 95 104 H 85 Respiratory Rate 18 Blood Pressure 146/63 H Pulse Oximetry 97 Oxygen Delivery 08/18/22 12:00 08/18/22 16:23 08/18/22 16:00 Temperature 36.7 C Pulse Rate 67 65 Respiratory Rate 20 Blood Press
[2022-08-19] MEDS: FINASTERIDE 5 MG TABLET PO (08:43)
[2022-08-19] MEDS: APIXABAN 5 MG TABLET PO (08:43)
[2022-08-19] MEDS: dilTIAZem HCL CD 180 MG CAP.ER.24H PO (08:43)
[2022-08-19] MEDS: ASPIRIN 81 MG ENTERIC TABLET PO (08:43)
[2022-08-19 09:15] LABS: Anion Gap 7 mmol/L (8-16); Blood Urea Nitrogen 20 mg/dL (9-20); Calcium 8.9 mg/dL (8.4-10.2); Carbon Dioxide 29 mmol/L (22-30); Chloride 104 mmol/L (98-107); Estimated CRCL calculation 71 ml/min; Estimated Glomerular Filt Rate > 60; Glucose 98 mg/dL (65-110); Potassium 4.1 mmol/L (3.4-5.0); Sodium 140 mmol/L (137-145)
[2022-08-19 12:00] VITALS: PULSE 61
--- NOTE | 2022-08-19 14:11 | PM.DS ---
DS: Admitting Diagnosis Discharge Date 08/19/22 Admitting Diagnosis Atrial fibrillation with RVR DS: Discharge Diagnosis Discharge Diagnosis (1) Atrial fibrillation with RVR: Code(s): I48.91 - Unspecified atrial fibrillation Status: Acute Assessment and Plan: Echo with EF 58%, left atrial enlargement and in atrial fibrillation. Patient has remained in sinus overnight and will be discharged to home. -Continue apixaban -Continue cardizem 180 po qam -Appreciate recommendations from Cardiology (2) HTN (hypertension): Code(s): I10 - Essential (primary) hypertension Status: Acute Assessment and Plan: Hypertension controlled with cardizem 180 mg qAM. (3) Hyperlipidemia: Code(s): E78.5 - Hyperlipidemia, unspecified Status: Acute Assessment and Plan: Has allergy to statin. (4) BPH (benign prostatic hyperplasia): Code(s): N40.0 - Benign prostatic hyperplasia without lower urinary tract symptoms Status: Acute Assessment and Plan: -Continue with finasteride DS: Summary Hospital Course Reason for hospitalization: Atrial fibrillaton with RVR Hospital Course: 71M with a past medical history of atrial fibrillation, hypertension, hyperlipidemia, benign prostatic hyperplasia, subdural hematoma (1999) who presented to the emergency department from his primary care clinic due to atrial fibrillation seen on EKG. Patient started on a cardizem drip and then was transition to oral cardizem. Echo showed EF 58%, left atrial enlargement and in atrial fibrillation. Patient converted to sinus while on the cardizem drip and remained in sinus after transition to oral medication. Patient advised to follow up with his primary care physician within a week from discharge. Patient was continued on apixaban due to stroke risk. Due to elevated AHI of 9, patient was recommended to have an outpatient sleep study ordered by his primary care physician. Time Spent with Patient Time attestation: Total time spent providing and/or coordinating discharge services: Exam Narrative: GENERAL: NAD, cooperative HEENT: Normocephalic, atraumatic, anicteric NECK:Supple CV:regular rate and rhythm. No murmurs, rubs or gallops. RESP: CTAB, Normal work of breathing. EXTREMITIES: Warm and well perfused, no clubbing, cyanosis, or edema. SKIN: warm, dry and intact. NEURO: CN 2-12 grossly intact. DS: Data Data Completed and Pending Labs on day of discharge: Labs from last 24 hours 08/19/22 08:54 Sodium 140 Potassium 4.1 Chloride 104 Carbon Dioxide 29 Anion Gap 7 L BUN 20 Creatinine 0.90 Estim Creat Clear Calc 71 Estimated GFR > 60 Glucose 98 Calcium 8.9 Imaging Radiologist's impression: ITS Impressions Chest X-Ray 08/17/22 15:43 IMPRESSION: No acute cardiopulmonary process. Discharge Plan Discharge Attending physician on discharge: Areli Montoya Consulting providers: Zamzam Jauregui Discharging Clinician: Areli Montoya Anticipated Discharge Date/Time: 08/19/22 14:23 Patient Disposition: Home, Self-Care Activity: as tolerated Diet: heart healthy and low sodium Discharge Instructions: As we discussed, you should follow up with your primary care physician within a week of discharge. Also, you may benefit from an outpatient sleep study as you were monitored for apnea while sleeping and found to be at risk for obstructive sleep apnea. Apixaban can cause bleeding. If you start to feel weak, more tired than usual, have bloody or black stools, you should seek medical attention immediately. Patient Instructions: Apixaban (By mouth), A-fib (Atrial Fibrillation) (DC), Antibiotic Form Stand Alone Forms: General Discharge Information Follow-up/Referrals: Marsha Dang LAGGING MACHINE OPERATOR [Primary Care Provider] - 1 Week Rona Bateman APN-C [Advanced Practice Nurse] - (09/07 at 10:00. Please arrive at 9:45. )
[2022-08-19 15:30] VITALS: PULSE 64
[2022-08-19 16:00] VITALS: BP 157/50; PULSE 63; RESP 16; TEMP 36.1; O2SAT 100
== END 2022-08-19 16:10 | disposition home or self-care (01) | DRG 310 ==
LOC: ANHED 15:59 → ANHIMU 18:00
PROVIDERS: Internal Medicine Cardiovascular Disease; Nurse Practitioner; Admitting Provider Internal Medicine; Emergency Provider Emergency Medicine; PCP Nurse Practitioner Family; Visit Provider Family Medicine
DX: I48.0 Paroxysmal atrial fibrillation (principal); I10 Essential (primary) hypertension; N40.0 Benign prostatic hyperplasia without lower urinary tract symptoms; E78.5 Hyperlipidemia, unspecified; Z87.891 Personal history of nicotine dependence; Z79.82 Long term (current) use of aspirin
CPT/HCPCS: 36415; 71045; 80048; 80053; 80061; 82728; 83605; 83690; 83735; 84443; 84484; 85025; 85610; 85730; 90471; 90694; 93005; 94762; 96365; 96372; 99285; A9270; C8929; G0008; G0378; J1650; Q9957

== ENCOUNTER 2022-09-29 13:30 | Emergency (ER) | payer MEDICARE, SELFPAY ==
[2022-09-29] VITALS (21 sets, daily range): BP systolic 135–178; BP diastolic 72–88; PULSE 17–118; RESP 12–27; TEMP 36.9; O2SAT 98–99
--- NOTE | ~2022-09-29 | CT_ITS ---
EXAMINATION: CT brain wo con DATE: 09/29/2022 14:33 INDICATION: Left-sided vision loss. Headache. TECHNIQUE: Computed tomography (CT) of the head was performed without intravenous contrast. The mA wa s adjusted according to patient size. Iterative reconstruction technique was employed. The dose-lengt h product was 605.33 mGy-cm. COMPARISON: Head CT 06/11/2022 FINDINGS: There is chronic encephalomalacia involving right frontal, temporal, parietal, and occipita l lobes. There are scattered areas of low attenuation in the cerebral white matter. There is no intra cranial hemorrhage or abnormal mass lesion. The ventricles are normal in size. There is mild mucosal thickening in the paranasal sinuses. The orbits are normal. There are changes of right mastoidectomy. There are changes of right-sided craniotomy. IMPRESSION: 1. Chronic encephalomalacia involving the right frontal, temporal, parietal, and occipital lobes. 2. Stable moderate nonspecific cerebral white matter disease, which likely represents chronic small v essel ischemic disease. Reviewed, dictated and finalized at location A. IMPRESSION: 1. Chronic encephalomalacia involving the right frontal, temporal, parietal, an d occipital lobes. 2. Stable moderate nonspecific cerebral white matter disease, which likely repr esents chronic small vessel ischemic disease.
--- NOTE | ~2022-09-29 | XR_ITS ---
EXAMINATION: XR chest 1V portable 09/29/2022 14:43 INDICATION: Neurologic deficits PROCEDURE: AP portable chest COMPARISON: 08/17/2022 FINDINGS: The lungs are clear. The cardiomediastinal silhouette is within normal limits. There are no pleural effusions. There is no pneumothorax suspected. There is tenting of the right diaphragm. Probable right basilar atelectasis. No significant change from 08/17/2022. IMPRESSION: 1: NO ACUTE CARDIOPULMONARY DISEASE. Reviewed, dictated and finalized at location A.
--- NOTE | 2022-09-29 13:58 | ECG_ITS ---
Measurements Intervals [place] Rate: 99 P: [place]: 0 QRS: 68 QRSD: 87 T: 38 QT: 359 QTc: 462 Interpretive Statements ATRIAL FIBRILLATION ABNORMAL ECG COMPARED TO ECG 08/17/2022 21:59:54 ATRIAL FIBRILLATION NOW PRESENT Electronically Signed On 09-29-2022 14:22:00 CDT by Farhat Bryant D.O.
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
[2022-09-29 14:15] LABS: Basophils Percent Auto 0.3 % (0.2-1.2); Eosinophils Absolute Auto 0.3 K/mm3 (0-0.3); Eosinophils Percent Auto 2.8 % (0-4.4); Hematocrit 38.6 % (42.0-52.0); Hemoglobin 13.2 g/dL (14.0-18.0); Immature Granulocyte Absolute 0.03 K/mm3 (0.00-0.031); Immature Granulocyte Percent A 0.3 % (0-0.5); Lymphocytes Absolute Auto 0.97 K/mm3 (0.9-3.2); Lymphocytes Percent Auto 10.4 % (18.3-44.2); Mean Corpuscular HGB Conc 34.2 g/dl (32-36); Mean Corpuscular Volume 84.8 fl (80-100); Mean Platelet Volume 10.6 fl (7.4-10.4); Monocytes Absolute Auto 0.9 K/mm3 (0.1-0.6); Monocytes Percent Auto 9.4 % (2.6-8.5); Neutrophils Absolute Auto 7.2 K/mm3 (1.3-6.7); Neutrophils Percent Auto 76.8 % (45.5-73.1); Platelet Count Result 287 k/mm3 (150-375); Red Blood Count 4.55 M/mm3 (4.6-6.20); Red Cell Distribution Width 12.7 % (11.5-14.5); White Blood Count 9.3 K/mm3 (4.5-10.0)
[2022-09-29 14:24] LABS: Alanine Aminotransferase 24 U/L (6-50); Albumin Level 4.1 g/dL (3.5-5.1); Alkaline Phosphatase 71 U/L (38-126); Anion Gap 13 mmol/L (8-16); Aspartate Amino Transferase 25 U/L (17-59); Bilirubin,Total 0.7 mg/dL (0.2-1.3); Blood Urea Nitrogen 18 mg/dL (9-20); Calcium 8.6 mg/dL (8.4-10.2); Carbon Dioxide 25 mmol/L (22-30); Chloride 99 mmol/L (98-107); Estimated CRCL calculation 80 ml/min; Estimated Glomerular Filt Rate > 60; Glucose 122 mg/dL (65-110); Potassium 3.4 mmol/L (3.4-5.0); Sodium 137 mmol/L (137-145)
[2022-09-29 14:51] LABS: Appearance Urine Clear (Clear); Bilirubin Urine Negative (Negative); Blood Urine Trace-intact (Negative); Color Urine Yellow (Yellow); Glucose Urine UA Negative (Negative); Ketones Urine Negative (Negative); Leukocyte Esterase Ur Negative LEU/UL (Negative); Nitrate Urine Negative (Negative); Protein Urine Negative (Negative); Specific Grav Ur 1.015 (1.001-1.035); Urobilinogen Urine 0.2 mg/dL (<2.0)
[2022-09-29 14:58] LABS: INR 1.2; Prothrombin Time 14.4 Seconds (11.1-14.7)
[2022-09-29 14:59] LABS: Mucus Urine Rare /lpf; RBC Urine 0-2 /hpf (0-2); WBC Urine 0-3 /hpf
[2022-09-29 14:59] LABS: Partial Thromboplastin Time 38.9 SECONDS (22.3-36.8)
[2022-09-29 15:01] LABS: Add Urine Microscopic? YES
[2022-09-29] MEDS: SODIUM CHLORIDE 0.9% IV 1,000 ML 999 ML IV CONT (15:30)
== END 2022-09-29 17:05 | disposition home or self-care (01) ==
PROVIDERS: Emergency Provider Emergency Medicine; PCP Nurse Practitioner Family
DX: H54.7 Unspecified visual loss (principal); I48.0 Paroxysmal atrial fibrillation; E78.5 Hyperlipidemia, unspecified; I10 Essential (primary) hypertension; N40.0 Benign prostatic hyperplasia without lower urinary tract symptoms; E66.3 Overweight; Z68.25 Body mass index [BMI] 25.0-25.9, adult; Z87.891 Personal history of nicotine dependence; Z79.01 Long term (current) use of anticoagulants
CPT/HCPCS: 36415; 70450; 71045; 80053; 81001; 85025; 85610; 85730; 93005; 96360; 99284; J7030

== ENCOUNTER 2022-11-21 06:31 | Emergency (ER) | payer MEDICARE, SELFPAY ==
[2022-11-21] VITALS (32 sets, daily range): BP systolic 148–196; BP diastolic 79–137; PULSE 72–97; RESP 14–30; TEMP 36.6; O2SAT 90–100
--- NOTE | ~2022-11-21 | XR_ITS ---
EXAMINATION: XR chest 1V portable DATE: 11/21/2022 07:16 INDICATION: Left-sided chest pain radiating to the left arm TECHNIQUE: frontal view of the chest was obtained. COMPARISON: Chest radiograph dated 09/29/22 FINDINGS: Small lung volumes and bibasilar atelectasis on the initial image obtained in expiratory phase. Minim al residual discoid atelectasis/scarring with chronic tenting along the lateral right hemidiaphragm o n the subsequent image obtained at inspiration. Calcified left upper lobe nodule consistent with old granulomatous disease. No other airspace opacities, pulmonary edema, pleural effusion or pneumothorax . The cardiomediastinal silhouette is normal. Visualized bones and soft tissues are unremarkable. IMPRESSION: 1. No acute cardiopulmonary disease. Reviewed, dictated and finalized at location A. Y CLOTH CUTTER HAND
[2022-11-21] MEDS: NITROGLYCERIN SL 0.4 MG TABLET SUBLINGUAL (06:43)
--- NOTE | 2022-11-21 06:43 | ECG_ITS ---
Measurements Intervals [place] Rate: 85 P: 48 LA: 183 QRS: 66 QRSD: 95 T: 27 QT: 346 QTc: 413 Interpretive Statements SINUS RHYTHM ST DEPRESSION, CONSIDER SUBENDOCARDIAL INJURY ABNORMAL ECG COMPARED TO ECG 09/29/2022 14:12:47 SINUS RHYTHM NOW PRESENT Electronically Signed On 11-21-2022 16:38:23 GREASE MACHINE WORKER by Hermann Benítez M.D.
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
[2022-11-21] MEDS: ASPIRIN 81 MG CHEWABLE TABLET 324 MG PO (06:52)
[2022-11-21 06:58] LABS: Basophils Absolute Auto 0.01 K/mm3 (0.00-0.10); Basophils Percent Auto 0.1 % (0.0-1.0); Hematocrit 42.4 % (37.0-46.0); Hemoglobin 14.5 g/dL (12.4-15.3); Immature Granulocyte Absolute 0.24 K/mm3 (0.00-0.00); Immature Granulocyte Percent A 2.2 % (0.0-0.0); Lymphocytes Absolute Auto 0.85 K/mm3 (1.10-4.50); Lymphocytes Percent Auto 7.8 % (18.0-42.0); Mean Corpuscular HGB Conc 34.2 g/dL (32.0-36.0); Mean Corpuscular Hemoglobin 30.3 pg (27.0-31.0); Mean Corpuscular Volume 88.7 fL (78.0-102.0); Mean Platelet Volume 10.5 fl (8.7-11.0); Monocytes Absolute Auto 0.42 K/mm3 (0.10-0.90); Monocytes Percent Auto 3.9 % (2.0-11.0); Neutrophils Absolute Auto 9.4 K/mm3 (1.7-7.2); Platelet Count Result 168 K/mm3 (150-420); Red Blood Count 4.78 M/mm3 (4.70-6.10); Red Cell Distribution Width 16.1 % (11.6-14.4); White Blood Count 10.9 K/mm3 (4.8-10.8)
[2022-11-21] MEDS: MORPHINE SULFATE (*CRX) 4 MG/ML INJ IV PUSH ×2 (07:07→08:24)
--- NOTE | 2022-11-21 07:19 | PC.NURSE ---
pt report to AJAY Donovan . no questions or concerns at this time.
[2022-11-21 07:25] LABS: Alanine Aminotransferase 62 U/L (16-63); Albumin Level 3.4 g/dL (3.4-5.0); Alkaline Phosphatase 50 U/L (46-116); Anion Gap 11 mmol/L (8-16); Aspartate Amino Transferase 14 U/L (15-37); Bilirubin,Total 0.9 mg/dL (0.00-1.00); Blood Urea Nitrogen 27 mg/dL (7-18); Calcium 8.2 mg/dL (8.5-10.1); Carbon Dioxide 25 mmol/L (21-32); Chloride 97 mmol/L (98-108); Estimated Glomerular Filt Rate > 60; Glucose 286 mg/dL (70-99); Lipase 75 U/L (16-77); NT Pro B Type Natriuretic Pept 1076 pg/mL (0-125); Osmolality Calculated 291 mOsm/kg (285-295); Potassium 3.1 mmol/L (3.5-5.1); Sodium 133 mmol/L (136-145); Total Protein 5.7 g/dL (6.4-8.2); Troponin I 15.3 ng/L (0.00-60.4)
--- NOTE | 2022-11-21 07:36 | ECG_ITS ---
Measurements Intervals [place] Rate: 69 P: 33 MT: 190 QRS: 53 QRSD: 91 T: 19 QT: 369 QTc: 397 Interpretive Statements SINUS RHYTHM NONSPECIFIC ST ABNORMALITY COMPARED TO ECG 11/21/2022 06:37:48 ST ABNORMALITIES HAVE IMPROVED AND HEART RATE HAS DECREASED Electronically Signed On 11-21-2022 16:38:56 NETWORK SYSTEMS INTEGRATOR by Hermann Benítez M.D.
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
--- NOTE | 2022-11-21 08:15 | PC.NURSE ---
PT IS LAUGHING AND SPEAKING WITH SON, HOWEVER REPORTS PAIN IN RETURNING AT THIS TIME /. ERP IS AWARE AND MEDICATIONS WERE ORDERED. PT HAS BEEN ACCEPTED TO [facility], IS AWAITING ROOM ASSIGNMENT. WILL CONTINUE TO MONITOR.
--- NOTE | 2022-11-21 08:18 | ECG_ITS ---
Measurements Intervals [place] Rate: 77 P: 47 [place]: 200 QRS: 71 QRSD: 96 T: 19 QT: 365 QTc: 415 Interpretive Statements SINUS RHYTHM NONSPECIFIC ST ABNORMALITY BORDERLINE ECG COMPARED TO ECG 11/21/2022 07:57:45 NO SIGNIFICANT CHANGES Electronically Signed On 11-21-2022 16:39:14 RESTORATIVE COORDINATOR by Hermann Benítez M.D.
[2022-11-21] MEDS: LORazepam INJ (*CRX) 2 MG/ML VIAL 0.5 MG IV PUSH (08:25)
[2022-11-21 08:26] LABS: Influenza A QL RT-PCR Negative (Negative); Influenza B QL RT-PCR Negative (Negative); SARS-CoV-2 RNA PCR Negative (Negative)
[2022-11-21 08:27] LABS: RSV RNA, RT-PCR Negative (Negative)
--- NOTE | 2022-11-21 08:41 | PC.NURSE ---
PT REPORTED PT IS NOW 09/05, ERP IS AWARE AND ANOTHER CALL PLACED TO [facility] LINE AT THIS TIME. PT WAS GIVEN ROOM ASSIGNMENT OF [address] AT [facility], TO AWAIT TO CALL REPORT FOR HITCH TECHNICIAN TO RETURN CALL. SON IS AT RN STATION REPORTING TO ERP THAT PT IS POSSIBLY HAVING A PANIC ATTACK. PT TO BE STARTED ON NITRO DRIP PER ERP.
[2022-11-21] MEDS: NITROGLYCERIN/D5W 200 MCG/ML 50 MG/250 ML BTL IV CONT (08:51)
--- NOTE | 2022-11-21 08:57 | PC.NURSE ---
RADIOLOGY FILMS WERE PUSHED TO [facility], HAVING DIFFICULTY MAKING A DISC PER RAD. PT IS WAS LAUGHING AND JOKING WITH SON, ATTEMPTING TO MAKE A CELL CALL IN EXAM ROOM PRIOR TO ONSET OF NITRO. PT REPORTS PAIN REMAINED, HOWEVER IS IMPROVING. NITRO DRIP BEGAN ORDERED WITHOUT DIFFICULTY. ATTEMPTED TO CALL REPORT TO [facility], NO ANSWER ON RN EXTENSION OR CHARGE NUMBERS THAT WERE PROVIDED. ERP SPOKE WITH CARDIOLOGY DR ROD, PT IS STILL TO BE ADMITTED TO ROOM [address] 6[address] AT [facility]. SON REMAINS AT BEDSIDE, INTERJECTING AT EVERY CHANCE. NAD NOTED WITH PT AT THIS TIME. PT AT NO TIME BECAME DIAPHORETIC, REPORTED RADIATION OF PAIN, DIZZINESS, LIGHTHEADEDNESS. PT DID BECOME TEARFUL AND ANXIOUS. WILL CONTINUE TO MONITOR.
--- NOTE | 2022-11-21 09:02 | PC.NURSE ---
ANOTHER ATTEMPT AT CALLING REPORT TO [facility] UNSUCCESSFUL. REPORT CALLED TO DROP WIRE STRINGERAJAY KNUTSON.
--- NOTE | 2022-11-21 09:26 | PC.NURSE ---
PT IS RESTING ON STRETCHER, REPORTS PAIN IS 4/10 AT THIS TIME. NAD NOTED, SON HAS LEFT THE ROOM. PT MEDICATION IS INFUSING ORDERED WITHOUT DIFFICULTY. NAD NOTED. PT IS LAUGHING AND UPDATED ON STATUS. PT IS AWAITING ARRIVAL OF EMS FOR TRANSPORT. WILL CONTINUE TO MONITOR. PT DENIES ANY NEEDS OR COMPLAINTS. PT IS MUCH MORE CALM WITH SON OUT OF EXAM ROOM.
[2022-11-21 09:47] LABS: Troponin I 51.9 ng/L (0.00-60.4)
[2022-11-21 09:56] LABS: Reflex Lactic Acid Yes or No Add Lactic
== END 2022-11-21 10:00 | disposition short-term general hospital (02) ==
PROVIDERS: Family Medicine; Emergency Provider Emergency Medicine; PCP Nurse Practitioner Family
DX: I20.0 Unstable angina (principal); R55 Syncope and collapse; I48.0 Paroxysmal atrial fibrillation; I10 Essential (primary) hypertension; E78.5 Hyperlipidemia, unspecified; R42 Dizziness and giddiness; Z87.891 Personal history of nicotine dependence; Z79.82 Long term (current) use of aspirin; Z20.822 Contact with and (suspected) exposure to COVID-19; Z79.899 Other long term (current) drug therapy
CPT/HCPCS: 36415; 71045; 80053; 83605; 83690; 83735; 83880; 84443; 84484; 85025; 87637; 93005; 96365; 96375; 96376; 99285; A9270; J2060; J2270